=== PATIENT | male | born 1990 | race African-American/Black ===

== ENCOUNTER 2020-09-13 09:47 | Emergency (ER) | payer OTHER ==
[~2020-09-13] VITALS: Ht 172.7 cm; Wt 77.1 kg
[2020-09-13 10:00] VITALS: BP 136/85
== END 2020-09-13 10:55 | disposition home or self-care (01) ==
LOC: ER 09:47
DX: Z04.1 Encounter for examination and observation following transport accident (principal); Z88.8 Allergy status to other drugs, medicaments and biological substances; V49.9XXA Car occupant (driver) (passenger) injured in unspecified traffic accident, initial encounter; Y93.89 Activity, other specified; Y92.89 Other specified places as the place of occurrence of the external cause; Y99.8 Other external cause status